=== PATIENT | female | born 2000 | race African-American/Black ===

== ENCOUNTER 2023-02-25 22:45 | Emergency (ER) | payer OTHER ==
[~2023-02-25] VITALS: Ht 162.6 cm; Wt 77.0 kg
[2023-02-25 23:01] VITALS: O2SAT 99
[2023-02-25] MEDS ORDERED: BACITRACIN ZINC OINT UDPKT TOP ONE (23:15)
[2023-02-25] MEDS ORDERED: LIDOCAINE HCL/PF 1% 10 MG/ML 5ML VIAL INFIL ONE (23:15)
[2023-02-25] MEDS ORDERED: LORAZEPAM 0.5MG TABLET PO ONE (23:30)
[2023-02-26] MEDS ORDERED: AMOX1TAB16 MT (00:29)
[2023-02-26 00:47] VITALS: BP 122/72; PULSE 92; RESP 20; TEMP 98.7
== END 2023-02-26 00:50 | disposition home or self-care (01) ==
LOC: ER 22:45
DX: S81.812A Laceration without foreign body, left lower leg, initial encounter (principal); W64.XXXA Exposure to other animate mechanical forces, initial encounter; Y93.89 Activity, other specified; Y92.89 Other specified places as the place of occurrence of the external cause; Y99.8 Other external cause status
CPT/HCPCS: 99283; 12004; J3490